=== PATIENT | male | born 1965 | race Caucasian/White ===

== ENCOUNTER 2017-06-30 08:09 | Day surgery (SDC) | payer BC, SELFPAY ==
[2017-06-28 13:32] VITALS: BMI 28.8
[2017-06-30] VITALS (11 sets, daily range): BP systolic 107–129; BP diastolic 59–76; PULSE 50–65; RESP 17–22; TEMP 37; O2SAT 96–99
--- NOTE | 2017-06-30 10:06 | HMH.PROC ---
[facility] Procedure Note Procedure Note:: Colonoscopy Procedure Report: Colonoscopy with cold snare polypectomy Endoscopist: Tad Fatima II, MD Referring physician: Juan Capone MD Date of Procedure: June 30, 2017 Equipment: Olympus 180 variable stiffness pediatric colonoscope Sedation: Fentanyl 100 mg IV/ Versed 5 mg IV Indication: Mr. Coronel is a 52-year-old gentleman who is here for initial screening colonoscopy. He reports no abdominal pain, weight loss, change in his bowel habits or rectal bleeding. He reports no family history of colon cancer. Procedure: Prior to the procedure, a history and physical exam was performed, and patient's medications and allergies were reviewed. The risks, benefits and alternatives of the sedation and procedure were discussed with the patient. All questions were answered and informed consent was obtained. The patient was brought to the procedure room. Patient identification and proposed procedure were verified by the physician and the nurse. The patient was placed in a left lateral decubitus position and the scope was passed under direct vision. Throughout the procedure, the patient's blood pressure, pulse, and oxygen saturations were monitored continuously. The colonoscopy was accomplished without difficulty. The patient tolerated the procedure well. Findings: On digital rectal examination there was normal rectal tone. There were no external hemorrhoids. The colonoscope was introduced through the anal canal to the rectum and advanced to the cecum. The ileocecal valve and appendiceal orifice were identified. The scope was advanced a short distance into the ileum which appeared grossly normal. The scope was then withdrawn into the colon. The cecum, ascending and transverse colon and mucosa were grossly normal. There were scattered diverticuli throughout the descending and sigmoid colon (LEFT colon). There was a 6-7 mm polyp in the descending colon removed via cold snare polypectomy. The rectum itself was normal. Upon retroflexion within the rectum there were grade 1 internal hemorrhoids. Impression: 1. Descending colon polyp 2. Left-sided diverticulosis 3. Grade 1 internal hemorrhoids Plan: I will follow up the polyp pathology and recommend repeat colonoscopy again in 5 years based upon the polyp histology. I would encourage fiber supplementation on a long-term daily maintenance basis.
== END 2017-06-30 11:12 | disposition home or self-care (01) ==
LOC: OUTP 08:09
PROVIDERS: Family Provider Family Medicine; PCP Family Medicine; Visit Provider Internal Medicine Gastroenterology
PROC: 0DJD8ZZ Inspection of Lower Intestinal Tract, Via Natural or Artificial Opening Endoscopic (ICD-10-PCS; CPT 45378; principal; 2017-06-30 09:00)
DX: Z12.11 Encounter for screening for malignant neoplasm of colon (principal); K63.5 Polyp of colon; K57.30 Diverticulosis of large intestine without perforation or abscess without bleeding; K64.0 First degree hemorrhoids
CPT/HCPCS: 45380; 99152; 99153

== ENCOUNTER → 2019-07-11 11:14 | Outpatient (CLI) | payer BC, SELFPAY ==
--- NOTE | 2019-07-11 11:20 | XR_ITS ---
PROCEDURE: XR LUMBAR SPINE MIN 4V CLINICAL INDICATION: RT LBP WITH SCIATICA COMPARISON: No exams were available for comparison FINDINGS: There is degenerative disc disease at L3-L4 L4-5 and L5-S1. There is 4 mm retrolisthesis of L4 and 3 mm anterolisthesis of L5. No fracture or dislocation. No lytic or blastic change. There is mild facet arthritic changes at L5-S1 IMPRESSION: Degenerative changes as described Dictated by: Vaslie Dumont MD 07/11/2019 15:58 Electronically signed by Vasile Dumont MD in [place] 07/11/2019 15:58
== END ==
PROVIDERS: PCP Family Medicine; Visit Provider Family Medicine
DX: M54.41 Lumbago with sciatica, right side (principal)
CPT/HCPCS: 72110

== ENCOUNTER → 2019-09-06 09:45 | Outpatient (CLI) | payer BC, SELFPAY ==
--- NOTE | 2019-09-06 09:52 | US_ITS ---
PROCEDURE: US ABD. AORTA SCREENING CLINICAL INDICATION: AAA W/O RUPTURE COMPARISON: XR LUMBAR SPINE MIN 4V from 07/11/2019 FINDINGS: Indication for the exam is possible aneurysm seen on recent MRI. That study is not available at this institution for comparison. No definite aneurysm is evident. Abdominal aorta measures up to 2.2 cm in the AP dimension at the level of the umbilicus. Proximal common iliacs are unremarkable. IMPRESSION: No ultrasound evidence of abdominal aortic aneurysm. Dictated by: Vasile Dumont MD 09/06/2019 11:49 Electronically signed by Vasile Dumont MD in [place] 09/06/2019 11:49
== END ==
PROVIDERS: PCP Family Medicine; Visit Provider Family Medicine
DX: I71.4 Abdominal aortic aneurysm, without rupture (principal)
CPT/HCPCS: 76705

== ENCOUNTER → 2019-09-24 11:15 | Outpatient (POV) | payer BC, SELFPAY ==
[2019-09-24 11:33] VITALS: BP 198/97; PULSE 64; RESP 18; TEMP 36.6; O2SAT 99; BMI 28.7
--- NOTE | 2019-09-24 12:53 | HMH.PMCON ---
Assessment and Plan (1) Degenerative joint disease (DJD) of lumbar spine Current visit: Yes Status: Chronic Qualifiers: Spinal osteoarthritis complication: with radiculopathy Qualified Code(s): M47.26 - Other spondylosis with radiculopathy, lumbar region Category: Medical Code(s): M47.816 - Spondylosis without myelopathy or radiculopathy, lumbar region (2) Radiculopathy Current visit: Yes Status: Chronic Category: Medical Code(s): M54.10 - Radiculopathy, site unspecified (3) Sacroiliitis Current visit: Yes Status: Chronic Category: Medical Code(s): M46.1 - Sacroiliitis, not elsewhere classified (4) Postlaminectomy syndrome Current visit: Yes Status: Chronic Category: Medical Code(s): M96.1 - Postlaminectomy syndrome, not elsewhere classified - Assessment and plan all Dx Assessment and Plan for all problems:: We will schedule the patient for an L4-L5 lumbar epidural steroid injection. They will then schedule him for right SI joint injection 2 to 3 weeks after that. We will start him on gabapentin 100 mg at nighttime. I will see him back after his injective therapy. Patient's been instructed to call the office if he has any issues prior to his next appointment. He was also given education in regards to the procedure. Dr. Nolen has reviewed this note and agrees with this plan of care. This note was dictated using voice recognition software and may contain errors or omissions HPI - Data of Consult Consult date: 09/24/19 Requesting Physician: Nelda Kaplan APRN Primary Care Provider: Juan Capone MD - Consult Narrative Reason for consult: Back pain, leg pain History of present illness: Mr. Coronel is a 54 year old male who presents today for consultation in regards to his low back and leg pain. Patient was moving his pie safe back in May and began to have back pain quickly after that. He has had low back pain with right leg radiculopathy. Also seems to have quite a bit of tenderness over his right SI joint. Patient has found that he has had more difficulty urinating since his back is been hurting. He rates his pain a 6 out of 10. He has been going to chiropractic therapy and has not gotten any relief from it. He does have an MRI showing disc bulges along with degenerative changes within his lower spine. Patient and I discussed a plan of care. He is not on any anticoagulation therapy. CC: Nelda Kaplan APRN [facility] History I have reviewed the patient's past medical history: Yes Medical History: Reports:: Hyperlipidemia Denies:: Diabetes Mellitus Type 1, Diabetes Mellitus Type 2, Internal Pacemaker, Lung Disease, Seizures *Have you ever received a pneumonia vaccine?: Yes *Have you received a flu vaccine this season?: Yes Other Medical History: Reports: Arthritis Other Surgeries: No: Pacemaker - *Social History Smoking Status: Never smoker Alcohol Intake: never *Occupational Status:: other Housing: house Household Members: other *Travel in the last 8 weeks: None Family Hx:: Unable to obtain Review of Systems - Review of Systems ROS General: no recent weight change, no fever, no sleep disturbances Respiratory: no cough, no shortness of air, no recurring pulmonary infections Cardiovascular/Peripheral Vascular: No chest pain, No palpitations, no edema, no shortness of breath. Gastrointestinal: no new onset incontinence, normal bowel movements reported Genitourinary: no new onset incontinence Musculoskeletal: Back pain, leg pain Psychiatric: normal mood/ affect, [denies depression], [denies anxiety] Neurological: [denies new onset weakness in extremities], [denies new onset balance issues] Meds Home Medications Medication Instructions Recorded Confirmed Type Dutasteride [Avodart] 0.5 mg PO DAILY 06/30/17 06/30/17 History tadalafiL [Cialis] 5 mg PO DAILY 06/30/17 06/30/17 History Allergies Allergy/AdvReac Type Severity Reaction S
== END ==
PROVIDERS: PCP Family Medicine; Visit Provider Clinical Nurse Specialist Family Health
DX: M47.26 Other spondylosis with radiculopathy, lumbar region (principal); M46.1 Sacroiliitis, not elsewhere classified; M96.1 Postlaminectomy syndrome, not elsewhere classified
CPT/HCPCS: 99202

== ENCOUNTER 2019-10-04 11:12 | Day surgery (SDC) | payer BC, SELFPAY ==
[2019-10-04 11:47] VITALS: BP 153/78; PULSE 63; RESP 18; O2SAT 98; BMI 28.7
[2019-10-04 12:33] VITALS: BP 145/78; PULSE 85
[2019-10-04 12:34] VITALS: BP 148/89; PULSE 85; RESP 18; O2SAT 99
[2019-10-04 12:38] VITALS: BP 149/80; PULSE 71; RESP 20; O2SAT 98
--- NOTE | 2019-10-04 12:44 | HMH.PMPROC ---
- Procedure Date: 10/04/19 Time: 12:45 Anesthesiologist:: Carlos Nolen MD Complications:: None Pre-procedure Diagnosis:: Degenerative disc disease of lumbar spine with lumbar radiculopathy symptoms Post-procedure Diagnosis:: Same Indications for Procedure:: This patient is a pleasant 54-year-old white male who we are treating for low back pain with lumbar radiculopathy symptoms. He does have significant pain in his low back radiating down right leg. Will do lumbar epidural steroid injections today. He may need a right SI joint injection in the future. Procedure Details:: Lumbar epidural steroid injection under fluoroscopy Informed consent was obtained and the risk and benefits of the procedure was explained to the patient. The patient was taken to the procedure room. The patient was placed prone on the procedure table. The patient was prepped and draped in sterile fashion. C-arm fluoroscopy was used to view the lumbar spine. Skin and subcutaneous tissues were anesthetized using lidocaine. I placed an 18-gauge epidural needle and advanced into the L4-L5 interspace using fluoroscopic guidance and [id number] to air. After confirmation of needle placement in the epidural space with dye I injected 2 mL of lidocaine 1.5% with Depo-Medrol 80 mg. Patient tolerated the procedure well with no complications. Plan and Disposition:: We will follow-up with him in 2 weeks. Will reevaluate symptoms at that time. We may evaluate him for right SI joint injection if he still has pain on the right side.
== END 2019-10-04 12:39 | disposition home or self-care (01) ==
LOC: SC.PAINP 11:13
PROVIDERS: PCP Family Medicine; Visit Provider Anesthesiology
DX: M51.16 Intervertebral disc disorders with radiculopathy, lumbar region (principal)
CPT/HCPCS: 62323; J1040; Q9966

== ENCOUNTER 2019-10-15 13:18 | Day surgery (SDC) | payer BC, SELFPAY ==
[2019-10-15 13:43] VITALS: BP 166/85; PULSE 82; RESP 18; O2SAT 98; BMI 28.7
[2019-10-15 14:29] VITALS: BP 132/78; PULSE 85; RESP 18; TEMP 36.9; O2SAT 99
[2019-10-15 14:30] VITALS: BP 147/78; PULSE 85; RESP 18; O2SAT 99
--- NOTE | 2019-10-15 14:33 | HMH.PMPROC ---
- Procedure Date: 10/15/19 Time: 14:34 Anesthesiologist:: Nelda Kaplan APRN Complications:: None Pre-procedure Diagnosis:: Sacroiliitis Post-procedure Diagnosis:: Same Indications for Procedure:: Patient is a very pleasant 54-year-old white male who presents today for right SI joint injection. He had a lumbar epidural steroid injection which gave him some relief however he still having SI joint pain. He is got a positive Librado test SI joint compression test and Renita's test on the right side. We will move forward with a right SI joint injection today. He rates his pain a 5 out of 10 today. Physical Exam General: Alert and oriented x3, no acute distress, pleasant and cooperative, [on room air] Lungs: Resps E/U, Symmetrical chest expansion, Eyes: PERRL Musculoskeletal: Flexion and extension of lumbar spine somewhat guarded secondary to pain, deep tendon reflexes normal, strength in upper and lower extremities [5/5], [abnormal gait noted] Neurological: speech clear, endoscopy tech equal, no gross sensory deficits Procedure Details:: Informed consent was obtained and the risks and benefits of the procedure were explained to the patient. Patient was taken to the procedure room. Patient was placed prone on the procedure table. The [right] hip was prepped using ChloraPrep as a cleansing solution. The skin and subcutaneous tissues were anesthetized using lidocaine. Using fluoroscopic guidance I placed a 22-gauge spinal needle into the inferior aspect of the [right] SI joint. After this I injected 5 mL bupivacaine 0.25% and Depo-Medrol 40 mg into the [right] SI joint. The patient tolerated the procedure well with no complication. Plan and Disposition:: We will see the patient back in 3 to 4 weeks reassess his symptoms at that time he has been instructed to call the office if he has any issues prior to his next appointment. Dr. Nolen has reviewed this note and agrees with this plan of care. This note was dictated using voice recognition software and may contain errors or omissions
[2019-10-15 14:35] VITALS: BP 144/94; PULSE 77; RESP 18; O2SAT 98
== END 2019-10-15 14:45 | disposition home or self-care (01) ==
LOC: SC.PAINP 13:19
PROVIDERS: PCP Family Medicine; Visit Provider Clinical Nurse Specialist Family Health
DX: M46.1 Sacroiliitis, not elsewhere classified (principal); Z72.0 Tobacco use; Z79.899 Other long term (current) drug therapy; M47.896 Other spondylosis, lumbar region; M96.1 Postlaminectomy syndrome, not elsewhere classified; E78.5 Hyperlipidemia, unspecified
CPT/HCPCS: 27096; G0260; J1030; Q9966

== ENCOUNTER → 2019-11-07 10:13 | Outpatient (POV) | payer BC, SELFPAY ==
[2019-11-07 10:58] VITALS: BP 151/82; PULSE 70; RESP 18; TEMP 36.8; O2SAT 98; BMI 28.7
--- NOTE | 2019-11-07 13:30 | HMH.PAINSOAP ---
[facility] Pain Management SOAP Note Subjective:: Patient is a pleasant 54-year-old white male who presents today for follow-up. He has been treated for low back pain along with lumbar radiculopathy symptoms. Patient has undergone a lumbar epidural steroid injection in the past for which he got 90% relief for up to 2 weeks. The patient also underwent right SI joint injection. He does admit that he did not get any relief with the right SI joint injection. He does say most of his pain was relieved with the epidural steroid injection. Patient is complaining of pain in his low back area with radiation into his right buttock and right anterior thigh area. He says it does radiate to his right foot. He has tried conservative therapies of physical therapy along with a continued home stretching program. He also uses ice and heat therapies and anti-inflammatories. Review of Systems General: No recent weight changes, no fever, no sleep disturbances Respiratory: No cough, no shortness of air, no recurring pulmonary infections Cardiovascular/peripheral vascular: No chest pain, no palpitations, no edema, no shortness of breath Gastrointestinal: No new onset incontinence, normal bowel movements reported Genitourinary: No new onset incontinence Musculoskeletal: Back pain, right buttock pain, right anterior thigh pain, right leg pain Psychiatric: Normal mood/affect Neurological: [Denies weakness in extremities], [denies balance issues] Objective:: Physical exam General: Alert and oriented x3, no acute distress, pleasant and cooperative, [on room air] Lungs: Respirations even and unlabored, symmetrical chest expansion Eyes: PERRL Musculoskeletal: Flexion and extension of lumbar spine somewhat guarded secondary to pain, deep tendon reflexes normal, strength in upper and lower extremities [5/5], [abnormal gait noted] Neurological: Speech clear, division supervisor equal, no gross sensory deficit Assessment:: Degenerative disc disease lumbar spine with lumbar radiculopathy symptoms Plan:: Patient did get relief in the past from his lumbar epidural steroid injection. We will schedule him for a repeat lumbar epidural steroid injection at L4-L5. He is not on any anticoagulation therapy. We will see him back after his injection to reassess his symptoms. He will continue with a home stretching program and anti-inflammatories as well as ice and heat therapies. Has been instructed to contact clinic if he has any concerns before his next appointment. The patient and I specifically discussed risk factors for COVID19. These risks include, but are not limited to age greater than 60, heart or lung disease, diabetes, immunosuppression, and travel. We also discussed NSAIDs may worsen COVID19 infection or symptoms. Patient should not use NSAIDs to treat COVID19 signs or symptoms. Patient was also informed that any type of corticosteroid of any form (oral or injection) will decrease the patient's immune system response and may increase the likelihood of COVID19 infection [address] symptoms[address] Nolen has reviewed this note and agrees with this plan of care. This note was dictated using voice recognition software and make contain errors or omissions. [facility] History I have reviewed the patient's past medical history: Yes Medical History: Reports:: Hyperlipidemia Denies:: Cancer, Diabetes Mellitus Type 1, Diabetes Mellitus Type 2, Internal Pacemaker, Lung Disease, MRSA, Seizures *Have you ever received a pneumonia vaccine?: Yes *Have you received a flu vaccine this season?: Yes Other Medical History: Reports: Arthritis Other Surgeries: No: Pacemaker Amputation: No Fractures: No - *Social History Smoking Status: Current every day smoker Tobacco Type: cigarettes # Packs/Day (cigarettes): 1 Alcohol Intake: never *Occupational Status:: other Housing: house Household Members: other *Travel in the last 8 weeks: None Family Hx:: Unable to obtain
== END ==
PROVIDERS: PCP Family Medicine; Visit Provider Clinical Nurse Specialist Family Health
DX: M51.16 Intervertebral disc disorders with radiculopathy, lumbar region (principal)
CPT/HCPCS: 99212

== ENCOUNTER → 2019-11-21 10:57 | Outpatient (CLI) | payer BC, SELFPAY ==
[2019-11-22 14:14] LABS: Covid-19 Nasal PCR Sendout Lex NOT DETECTED
== END ==
PROVIDERS: PCP Family Medicine; Visit Provider Family Medicine
DX: Z03.818 Encounter for observation for suspected exposure to other biological agents ruled out (principal); Z11.59 Encounter for screening for other viral diseases
CPT/HCPCS: U0004

== ENCOUNTER 2019-12-06 09:32 | Day surgery (SDC) | payer BC, SELFPAY ==
[2019-12-06 09:47] VITALS: BP 151/76; PULSE 61; RESP 18; TEMP 36.4; O2SAT 99; BMI 30.1
[2019-12-06 10:20] VITALS: BP 132/88; PULSE 85; RESP 18
[2019-12-06 10:21] VITALS: BP 140/78; PULSE 85; RESP 18; O2SAT 98
--- NOTE | 2019-12-06 10:25 | HMH.PMPROC ---
- Procedure Date: 12/06/19 Time: 10:25 Anesthesiologist:: Carlos Nolen MD Complications:: None Pre-procedure Diagnosis:: Degenerative disc disease of lumbar spine with lumbar radiculopathy symptoms Post-procedure Diagnosis:: Same Indications for Procedure:: This patient is a pleasant 54-year-old white male who we are treating for low back pain with lumbar radiculopathy symptoms. He has increasing pain in the low back rating down the right leg. Will do lumbar epidural steroid injection under fluoroscopy today. Procedure Details:: Lumbar epidural steroid injection under fluoroscopy Informed consent was obtained and the risk and benefits of the procedure was explained to the patient. The patient was taken to the procedure room. The patient was placed prone on the procedure table. The patient was prepped and draped in sterile fashion. C-arm fluoroscopy was used to view the lumbar spine. Skin and subcutaneous tissues were anesthetized using lidocaine. I placed an 18-gauge epidural needle and advanced into the L4-L5 interspace using fluoroscopic guidance and [id number] to air. After confirmation of needle placement in the epidural space with dye I injected 2 mL of lidocaine 1.5% with Depo-Medrol 80 mg. Patient tolerated the procedure well with no complications. Plan and Disposition:: We will follow-up with him in 2 weeks. Will reevaluate symptoms at that time.
[2019-12-06 10:38] VITALS: BP 143/78; PULSE 78; RESP 18; O2SAT 99
== END 2019-12-06 10:39 | disposition home or self-care (01) ==
LOC: SC.PAINP 09:34
PROVIDERS: PCP Family Medicine; Visit Provider Anesthesiology
DX: M51.16 Intervertebral disc disorders with radiculopathy, lumbar region (principal); I10 Essential (primary) hypertension; Z72.0 Tobacco use; M46.1 Sacroiliitis, not elsewhere classified; M47.896 Other spondylosis, lumbar region
CPT/HCPCS: 62323; J1040; Q9966

== ENCOUNTER → 2019-12-26 09:44 | Outpatient (POV) | payer BC, SELFPAY ==
[2019-12-26 10:15] VITALS: BP 144/80; PULSE 58; RESP 18; TEMP 36.8; O2SAT 99; BMI 28.7
--- NOTE | 2019-12-26 11:43 | HMH.PAINSOAP ---
[facility] Pain Management SOAP Note Subjective:: Patient is a pleasant 54-year-old white male who presents today follow-up after his third lumbar epidural steroid injection. He has been treated for low back pain with lumbar radiculopathy symptoms. He has increasing pain in his low back radiating into his right leg. Patient says he did not get any relief after this injection. He says his pain was actually worse following the injection. He rates his pain a 5 or 6 out of 10 today. He is planning to go to new job within the next week and does not want to resume any injective therapy at this time. Patient would like to try oral medications. He does not want an opiate at this time. He says he is taking Tylenol and ibuprofen [id number]. Review of Systems General: No recent weight changes, no fever, no sleep disturbances Respiratory: No cough, no shortness of air, no recurring pulmonary infections Cardiovascular/peripheral vascular: No chest pain, no palpitations, no edema, no shortness of breath Gastrointestinal: No new onset incontinence, normal bowel movements reported Genitourinary: No new onset incontinence Musculoskeletal: Back pain, right leg pain Psychiatric: Normal mood/affect Neurological: [Denies weakness in extremities], [denies balance issues] Objective:: Physical exam General: Alert and oriented x3, no acute distress, pleasant and cooperative, [on room air] Lungs: Respirations even and unlabored, symmetrical chest expansion Eyes: PERRL Musculoskeletal: Flexion and extension of lumbar spine somewhat guarded secondary to pain, deep tendon reflexes normal, strength in upper and lower extremities [5/5], [abnormal gait noted] Neurological: Speech clear, criminal justice instructor equal, no gross sensory deficit Assessment:: Degenerative disc disease lumbar spine with lumbar radiculopathy symptoms Plan:: We will give the patient's Duexis samples today to see if this gives him relief. If he has been encouraged to stop taking any [id number] anti-inflammatories. If the patient does get relief we will order hand the medication. We will follow-up with him in 2 weeks to reassess his symptoms. He has been instructed to contact clinic if he has any concerns before his next appointment. The patient and I specifically discussed risk factors for COVID19. These risks include, but are not limited to age greater than 60, heart or lung disease, diabetes, immunosuppression, and travel. We also discussed NSAIDs may worsen COVID19 infection or symptoms. Patient should not use NSAIDs to treat COVID19 signs or symptoms. Patient was also informed that any type of corticosteroid of any form (oral or injection) will decrease the patient's immune system response and may increase the likelihood of COVID19 infection [address] symptoms[address] Nolen has reviewed this note and agrees with this plan of care. This note was dictated using voice recognition software and make contain errors or omissions. [facility] History I have reviewed the patient's past medical history: Yes Medical History: Reports:: Hyperlipidemia Denies:: Cancer, Diabetes Mellitus Type 1, Diabetes Mellitus Type 2, Internal Pacemaker, Lung Disease, MRSA, Seizures *Have you ever received a pneumonia vaccine?: Yes *Have you received a flu vaccine this season?: Yes Other Medical History: Reports: Arthritis Other Surgeries: No: Pacemaker Amputation: No Fractures: No - *Social History Smoking Status: Current every day smoker Tobacco Type: cigarettes # Packs/Day (cigarettes): 1 Alcohol Intake: never *Occupational Status:: other Housing: house Household Members: other *Travel in the last 8 weeks: None Family Hx:: Unable to obtain
== END ==
PROVIDERS: PCP Family Medicine; Visit Provider Clinical Nurse Specialist Family Health
DX: M51.16 Intervertebral disc disorders with radiculopathy, lumbar region (principal)
CPT/HCPCS: 99212

== ENCOUNTER → 2021-10-11 15:13 | Outpatient (CLI) | payer OTHER, SELFPAY ==
--- NOTE | 2021-10-11 15:20 | CT_ITS ---
FINAL REPORT CLINICAL HISTORY: SCREENING FOR CANCER; DEPENDANCE OF NICOTINE smoker 1ppd x 30 years no family hx FINDINGS: CT CHEST SCREENING CTDI vol (mGy): 2.90 DLP (mGy-cm): 100.29 Axial images were obtained from the lung apex to the mid abdomen by computed tomography. Low-dose protocol was utilized. FINDINGS: CHEST: There is no axillary adenopathy. There are several borderline mediastinal nodes. The heart is proper size. There is no pericardial or pleural effusion. Limited images of the upper abdomen are unremarkable. Lung window images demonstrate mild emphysema and mild scarring. There are several calcified granulomas in the right lung. IMPRESSION: Lung RADS category 1. Recommend 12 month follow-up low-dose chest CT. Reviewed, Interpreted and Dictated by Nigel Osei III, MD Transcribed by Adrienne Pablo Authenticated and [facility]
== END ==
PROVIDERS: PCP Family Medicine; Visit Provider Family Medicine
DX: Z87.891 Personal history of nicotine dependence (principal); Z12.2 Encounter for screening for malignant neoplasm of respiratory organs
CPT/HCPCS: 71271

== ENCOUNTER 2022-02-07 11:28 | Emergency (ER) | payer OTHER, SELFPAY ==
[2022-02-07 12:35] VITALS: BP 155/98; PULSE 65; RESP 18; TEMP 36.9; O2SAT 99; BMI 27.2
--- NOTE | 2022-02-07 12:41 | EXP.UTC ---
Discharge Plan Disposition Patient Disposition: Home, Self-Care Condition: Good Prescriptions Prescriptions: New benzonatate [benzonatate] 100 mg capsule 100 mg PO TIDP PRN (Reason: Cough) Qty: 30 0RF ondansetron 4 mg Tablet,Disintegrating 4 mg PO Q8H PRN (Reason: Nausea) Qty: 20 0RF No Action gabapentin 100 MG capsule 100 mg PO HS cyclobenzaprine 10 MG tablet 10 mg PO TID 30 Days Qty: 90 0RF dutasteride [Avodart] 0.5 MG capsule 0.5 mg PO DAILY tadalafil [Cialis] 5 MG tablet 5 mg PO DAILY Referrals Follow up/Referrals: Juan Capone MD [Primary Care Provider] - See instructions Activity Restrictions/Add. Instructions Additional Instructions/Restrictions: Drink plenty of fluids. Take tylenol or ibuprofen for pain or fever. Take the medications as directed. Follow up with your regular doctor. GO TO THE ER FOR ANY WORSENING SYMPTOMS Quarantine until you know the results of your covid-19 test. Notify your school or workplace of your results and follow their instructions regarding return to work/school. Clinical Impressions Clinical Impression: COVID-19 Instructions Patient Instructions: Coronavirus Disease 2019, Preventing the Spread of Coronavirus Discharge Instructions Discharge ED Provider: Otoniel Barone [facility] General Stated complaint: fever,aches,cough,sore throat,covid test Time Seen by Provider: 02/07/22 12:40 History of Present Illness Provider Complaint: He is here to have a pcr covid-19 test done. He has felt bad for the past 2 days. He took a home covid test yesterday and the results were positive. He denies any shortness of breath or chest congestion. Related Data Home Medications Medication Instructions Recorded Confirmed dutasteride 0.5 mg capsule 0.5 mg PO DAILY blood pressure 06/30/17 10/15/19 (Avodart) tadalafil 5 mg tablet (Cialis) 5 mg PO DAILY . 06/30/17 10/15/19 gabapentin 100 mg capsule 100 mg PO HS Pain 10/04/19 10/15/19 Previous Rx's Medication Instructions Recorded cyclobenzaprine 10 mg tablet 10 mg PO TID 30 days #90 tabs 12/26/19 benzonatate 100 mg capsule 100 mg PO TIDP PRN Cough #30 caps 02/07/22 ondansetron 4 mg disintegrating 4 mg PO Q8H PRN Nausea #20 tabs 02/07/22 tablet Allergies Allergy/AdvReac Type Severity Reaction Status Date / Time No Known Allergies Allergy Verified 10/15/19 13:49 PFSH PFSH Medical History BPH (benign prostatic hyperplasia) Social History Smoking Status: Current every day smoker tobacco type: cigarettes packs per day: 1 alcohol intake: never current occupational status: other Travel in the last 8 weeks: None household members: other housing: house caffeine: Yes ROS Obtained: Yes All systems reviewed & no additional complaints except as documented Constitutional Constitutional: Denies chills and Denies fever(s) Eyes Eyes: Denies eye discharge ENT Ears, Nose, Mouth, and Throat: Denies dizziness, Denies otalgia and Denies sore throat Cardiovascular Cardiovascular: Denies chest pain Respiratory Respiratory: Denies shortness of breath, Denies chest congestion, Denies cough, Denies stridor and Denies wheezing Gastrointestinal Gastrointestingal: Denies nausea or vomiting Musculoskeletal Musculoskeletal: Reports system reviewed and no additional complaints, except as documented and Denies arthralgias Integumentary/Breasts Skin/Breast: Denies rash Neurologic Neurologic: Denies dizziness and Denies paresthesias Allergic/Immunologic Allergic/Immunologic: Denies wheezing Physical Exam General General appearance: alert and in no apparent distress Head Head exam: atraumatic, normocephalic and normal inspection Eye Eye exam: Present normal appearance, PERRL and EOMI ENT ENT exam: Present normal exam, normal oropharynx, mucous membranes moist, TM's no
[2022-02-07 13:01] VITALS: BP 155/98; PULSE 65; RESP 18; TEMP 36.9; O2SAT 99
== END 2022-02-07 13:03 | disposition home or self-care (01) ==
PROVIDERS: Emergency Provider Nurse Practitioner Family; PCP Family Medicine
DX: U07.1 COVID-19 (principal); J02.9 Acute pharyngitis, unspecified; R50.9 Fever, unspecified; R05.9 Cough, unspecified; M79.10 Myalgia, unspecified site; R11.0 Nausea; N40.0 Benign prostatic hyperplasia without lower urinary tract symptoms; F17.210 Nicotine dependence, cigarettes, uncomplicated; Z79.899 Other long term (current) drug therapy
CPT/HCPCS: 99213; C9803; G0463; U0003; U0005

== ENCOUNTER → 2023-02-13 06:51 | Outpatient (CLI) | payer OTHER, SELFPAY ==
--- NOTE | 2023-02-13 07:05 | CT_ITS ---
FINAL REPORT CLINICAL HISTORY: HX NICOTINE DEPENDENCE 1 ppd x 35 years family hx of lung cancer COMPARISON: 10/11/2021 FINDINGS: CTDI vol (mGy): 2.90 DLP: 101.[address] images of the chest were obtained using the low-dose protocol for screening. Several borderline mediastinal lymph nodes are seen. There is no evidence of mediastinal or hilar mass or adenopathy. No axillary mass or adenopathy is identified. On the lung window images, no pulmonary mass or suspicious nodule is identified. There is mild emphysema and mild scarring. Several calcified granulomas are noted. IMPRESSION: Lung RADS category 1 . Recommend 12 month followup low-dose CT for further evaluation. Reviewed, Interpreted and Dictated by Nigel Osei III, MD Transcribed by Mary Adhikari Authenticated and [facility]
== END ==
PROVIDERS: PCP Family Medicine; Visit Provider Family Medicine
DX: Z12.2 Encounter for screening for malignant neoplasm of respiratory organs (principal); Z87.891 Personal history of nicotine dependence
CPT/HCPCS: 71271

== ENCOUNTER 2023-10-30 09:36 | Outpatient (CLI) | payer OTHER, SELFPAY ==
--- NOTE | 2023-10-30 09:49 | ECG_ITS ---
APPROVED REPORT Exam: Resting ECG HR:45 bpm ECG Measurements Heart Rate 45 AXES ME 142 P -1 QRSd 106 QRS 28 QT 434 T 32 QTc 391 Conclusion SINUS BRADYCARDIA BORDERLINE ECG UNCONFIRMED REPORT Electronically signed by : Ventura Santacruz MD 10/30/2023 17:19:04
== END 2023-10-30 23:59 | disposition home or self-care (01) ==
LOC: RT 09:38
PROVIDERS: PCP Family Medicine; Visit Provider Family Medicine
DX: R07.89 Other chest pain (principal)
CPT/HCPCS: 93005

== ENCOUNTER 2023-11-13 11:12 | Outpatient (CLI) | payer OTHER, SELFPAY ==
--- NOTE | 2023-11-13 | CA_ITS ---
APPROVED REPORT Exam: Pharmacologic Technologist: Latanya Quiros Ht: 5 ft 10 in Wt: 188 lbs BSA: 2.03 m2 HR: 67 bpm BP: 166/76 mmHg Indications: Atypical Chest Pain Medical History Medications: Aspirin,,,,, Allergy medication,,,,, Finasteride,,,,, Multivitamin,,,,, Stress Test Details Test: LEXISCAN HR Resting HR: 64 bpm Max Heart Rate (APMHR): 163 bpm Max HR Achieved: 95 bpm Target HR (85% APMHR): 139 bpm % of APMHR: 58 BP Resting BP: 166/76 mmHg Max BP: 166/76 mmHg Recovery BP: 130.0/75.0 mmHg ECG Resting ECG: Sinus rhythm Stress ECG: No significant ST changes Arrhythmia: None Clinical Exercise duration: 04:04 min Highest Stage Achieved: Exercise capacity: 1.0 METs Stress ECG Conclusion Mild chest pressure. Worsening chest pressure(4/10, 6/10) radiating to left arm. Initially scheduled for Perez protocol, but stopped test. Changed to Lexiscan. ST depression and T-wave inversion in inferolateral leads associated with 6/10 chest pressure with shortness of air and radiation to left arm, resolved very quickly at rest. Symptoms: Chest tightness. Left arm pain. Arrhythmias/Ectopy: None ST-T Changes: Lexiscan. Conclusion: Chest tightness radiating to left arm with Lexiscan. Myoview images reported separately. Test Summary REST . . . . . . . Resting REST 02:12 . . 64 . 166/ 76 . . Stage 1 . . . . . . . Myoview Injected Stage 1 01:00 . . 91 . . . . Stage 2 . . . . . . . shoulder and arm pain (left) Stage 2 01:00 . . 85 . 163/ 73 . . Stage 3 . . . . . . . chest pressure Stage 3 01:00 . . 77 . 153/ 80 . . Stage 4 01:00 . . 73 . 153/ 76 . . Stage 4 01:04 . . 72 . 153/ 76 . Stop exercise at 04:04 RECOVERY 01:00 . . 67 . 145/ 80 . . RECOVERY 02:00 . . 69 . 132/ 80 . . RECOVERY 03:00 . . 63 . 132/ 80 . . RECOVERY 04:00 . . 65 . 130/ 75 . . RECOVERY 04:36 . . 64 . 130/ 75 . . Electronically signed by : Amber Bae MD 11/14/2023 11:25:25
--- NOTE | 2023-11-13 11:16 | NM_ITS ---
APPROVED REPORT Exam: Nuclear Stress Test Indication: TOB USE, C.P. Patient Location: Outpatient Stress Tech: Latanya Quiros NM Tech:Paula Steen ARRT, RT (R)(N) Ht: 5 ft 10 in Wt: 188 lbs HR: 64 bpm BP: 166/76 mmHg BSA: 2.03 m2 TID: 1.01 BMI: 26.9 History: TOB USE, C.P. Procedure: Patient received 0.4 mg of intravenous Lexiscan, resting heart rate 64 bpm, resting blood pressure 166/76 mmHg, with Lexiscan maximum heart rate achieved was 95 bpm which is % of the maximum predicted heart rate and blood pressure was 166/76 mmHg. With Lexiscan, patient denied any complaint of chest pain. Electrocardiogram None Cardiac Stress and Resting SPECT Images: Cardiac Stress and Resting SPECT images were obtained using technetium 99m Myoview 30.3 mCi stress and 10.17 mCi at rest. Resting and stress imaging in supine position demonstrate a large sized, moderate, predominantly fixed perfusion defect in the inferior LV wall. There is small ischemic region with surrounding reversibility. There is also medium sized, moderate, predominantly fixed perfusion defect in the mid to distal anterior LV wall towards the anterior apical region. There is also a small ischemic region with surrounding reversibility. Gated imaging demonstrates mild reduction in global and regional LV systolic function. LVEF is calculated at 42% Conclusion: Large sized, moderate, predominantly fixed perfusion defect in the inferior LV wall. There is small ischemic region with surrounding reversibility. There is also medium sized, moderate, predominantly fixed perfusion defect in the mid to distal anterior LV wall towards the anterior apical region. There is also a small ischemic region with surrounding reversibility. Gated imaging demonstrates mild reduction in global and regional LV systolic function. LVEF is calculated at 42% Electronically signed by : Amber Bae MD 11/14/2023 11:33:51
[2023-11-13] MEDS: REGADENOSON 0.4MG/5ML SYRINGE 0.4 MG IV (13:23)
[2023-11-13] MEDS: SODIUM CHLORIDE 0.9% 10ML SYR (RAD ONLY) 10 ML IV ×2 (13:23)
[2023-11-13] MEDS: ISOTOPE MYOVIEW (PER STUDY) 1 DOSE IV (13:23)
== END 2023-11-13 23:59 | disposition home or self-care (01) ==
LOC: RAD 11:12
PROVIDERS: PCP Family Medicine; Visit Provider Family Medicine
DX: R07.89 Other chest pain (principal)
CPT/HCPCS: 78452; 93017; 93018; A9502; J2785

== ENCOUNTER 2023-12-11 10:46 | Outpatient (CLI) | payer OTHER, SELFPAY ==
--- NOTE | 2023-12-11 10:46 | CA_ITS ---
APPROVED REPORT EXAM: Comprehensive 2D, Doppler, and color-flow Echocardiogram [employer] Boards Stripper Etcher: Nidhi Cardona RDCS Ht: 5 ft 10 in Wt: 182lbs BSA: 2.01 BP: 138/66 mmHg Indications: CP,ABN GXT,SOA,HTN,HLP M-Mode Dimensions RVDd 2.14 cm (0.9-2.6) LA Diam 3.09 cm (1.9-4.0) LVDd 5.59 cm (3.5-5.7) LVDs 4.09 cm (3.5-5.7) IVSd 0.97 cm (0.6-1.1) PWd 0.84 cm (0.6-1.1) EF (Teich) 51.80% FS 26.80% EDV (Teich) 153.00 mL TAPSE 2.29 (<1.7) ESV (Teich) 73.80 mL LV Diastology E Decel Time 223 (160-240 msec) E/A Ratio 1.0 Mitral Valve MV E Max Ezio. 69.0 (40-130 cm/s) MV A Velocity 66.0 (40-130 cm/s) E/A Ratio 1.06 MV PHT 65.0 ms Tricuspid Valve TR P. Velocity 218.00 cm/s RAP Estimate 10.00 mmHg RVSP 28.90 mmHg Left Ventricle The left ventricle is normal size. The left ventricular systolic function is normal. The left ventricular ejection fraction is within the normal range. There is normal left ventricular wall thickness. There is normal LV segmental wall motion. The left ventricular diastolic function is normal. LVEF is 55%. Right Ventricle Right ventricle is moderately dilated. The right ventricular systolic function is normal. Atria The left atrium size is normal. The right atrium size is normal. There is no Doppler evidence of interatrial shunt. Aortic Valve The aortic valve opens well. There is no aortic valvular stenosis. No aortic regurgitation is present. Mitral Valve The mitral valve is normal in structure. No evidence of mitral valve stenosis. Trace mitral valve regurgitation noted. Tricuspid Valve Tricuspid valve leaflets are thin and pliable. Mild tricuspid regurgitation. RVSP is 20-25 mmHg. Pulmonic Valve The pulmonary valve is normal in structure. Trace pulmonic regurgitation. The ascending aorta is not well-visualized. Great Vessels The aortic root is normal in size. IVC is normal in size and collapses >50% with inspiration. Pericardium There is no pericardial effusion. Other Information Study Quality: Fair Conclusion Normal LV systolic function. Moderate RV dilation with normal RV function. Mild TR. Electronically signed by : Amber Bae MD 12/12/2023 11:56:10
== END 2023-12-11 23:59 | disposition home or self-care (01) ==
LOC: RT 10:46
PROVIDERS: PCP Family Medicine; Visit Provider Nurse Practitioner Family
DX: I20.89 Other forms of angina pectoris (principal); R06.00 Dyspnea, unspecified; I10 Essential (primary) hypertension; I45.10 Unspecified right bundle-branch block; R94.31 Abnormal electrocardiogram [ECG] [EKG]; R94.39 Abnormal result of other cardiovascular function study; F17.210 Nicotine dependence, cigarettes, uncomplicated
CPT/HCPCS: 93306

== ENCOUNTER 2023-12-14 08:25 | Day surgery (SDC) | payer OTHER, SELFPAY ==
[2023-12-14] VITALS (13 sets, daily range): BP systolic 114–167; BP diastolic 58–86; PULSE 41–54; RESP 16–19; TEMP 36.9; O2SAT 93–98; BMI 26.1
--- NOTE | 2023-12-14 07:08 | IR_ITS ---
APPROVED REPORT Patient Location: Outpatient Supervisor [employer]: JESUS Triplett RT (R) PROCEDURES Left heart catheterization Left ventriculogram Selective coronary angiogram Drug-eluting stent deployment to the ostial proximal right coronary artery Drug-eluting stent deployment to a chronically occluded left anterior descending artery INDICATION Abnormal Myoview, Angina pectoris, Chronically occluded LAD, Atherosclerosis and coronary artery disease with dissection of the right coronary artery Informed consent was obtained prior to the procedure. COMPLICATIONS NONE Estimated Blood Loss: LESS THAN 10 ML TECHNIQUE One percent lidocaine used to anesthetize the right anterior aspect of the wrist. The right radial artery was accessed via the Seldinger technique. A 6 Lao sheath was placed in the right radial artery. 2.5 mg of Verapamil, 800 mcg of nitroglycerin, 1mg Lidocaine and 5000 U Heparin were given through the arterial sheath. The papa catheter was also used to perform left heart catheterization, left ventriculogram and selective coronary angiogram. At the end of the diagnostic angiogram the right coronary artery had significant atheromatous debris as well as a dissection. Therapeutic heparin was administered and the guide catheter was placed back into the right coronary followed by a Choice PT extra-support wire. A 3 mm x 30 mm [place] frontier stent was deployed initially at 14 shirley reducing the stenosis. The balloon was brought back and deployed at 20 shirley outside of the right coronary cusp to further post dilate the ostium and proximal segment. GUERA-3 flow was present before and after the procedure. The dissection was completely resolved following stenting of the right coronary artery. Following this the catheter was placed in the right coronary artery and a Choice PT extra-support wire was used to push through the chronic occlusion of the mid LAD. A 2.5 x 15 mm noncompliant balloon was deployed reducing the stenosis and opening the chronic occlusion. A 3.5 x 22 mm [place] frontier stent was deployed at 18 shirley reducing the stenosis. There was a residual stepdown therefore a 3 mm x 8 mm [place] frontier stent was placed distal to the for stent yet still overlapping and deployed at 18 shirley. The balloon was brought back and reported 24 shirley to mesh the 2 stents. GUERA 0 flow was present at the beginning of the procedure with GUERA-3 flow at the end of the procedure. Then the procedure the apparatus was removed the sheath was removed and hemostasis was achieved using TR banding patient was transferred to the postop putting in stable condition ANGIOGRAPHIC RESULTS The left main artery Normal The left anterior descending artery Proximally normal and then occluded at mid vessel. Following revascularization the LAD was large and wraps the apex The circumflex artery Massively large dominant vessel with mild 10% luminal regularities in the proximal segment with a concentric 30 to 40% stenosis in the mid to distal segment The right coronary artery Nondominant large with heavy atheromatous debris in the proximal segment with the initial shot demonstrating an iatrogenic catheter induced dissection The ROBERTS ventriculogram reveals Preserved at 55% The left ventricular end-diastolic pressure 15 to 20 mmHg IMPRESSION Successful stenting of the ostial proximal right coronary artery heavily atheromatous plaque accompanied by catheter induced dissection reduced to 0% with 1 drug-eluting stent Successful stenting of a chronically occluded mid LAD 100% occlusion reduced to 0% with 2 contiguous drug-eluting stents as described above Preserved ejection fraction Borderline elevated LVEDP PLAN 1. Effient 10 mg daily plus aspirin 81 mg daily 2. LDL less than 55 to be achieved with high intensity statin 3. Avoidance of tobacco products 4. Risk factor modification 5. Cardiac rehabilitation Electronically signed by : Doroteo Mayorga MD 12/14/2023 10:14:49
[2023-12-14 08:54] LABS: Chloride 109 mmol/L (98-107); Potassium 4.6 mmoL/L (3.5-5.1); Sodium 143 mmol/L (136-145)
[2023-12-14 08:57] LABS: Anion Gap 12.6 mEq/L (5-15); Blood Urea Nitrogen 18 mg/dl (9-20); Calcium 9.5 mg/dl (8.4-10.2); Carbon Dioxide 26 mmol/L (22.0-30.0); Creatinine Clearance Estimated 106 mL/min (50-200); Estimated Glomerular Filt Rate 87 ml/min (>60); GFR (African American) 105 ML/MIN (>60); Glucose 97 mg/dl (74-100)
[2023-12-14] MEDS: 0.9 % SODIUM CHLORIDE 500 ML 25 ML IV (09:03)
[2023-12-14] MEDS: HEPARIN 1,000 UNITS/500ML NS (CATH LAB) 3000 UNIT IV (09:03)
[2023-12-14] MEDS: diphenhydrAMINE 50MG/ML VIAL 50 MG IV (09:03)
[2023-12-14] MEDS: NITROGLYCERIN 800MCG/8ML SYR (CATH LAB) 800 MCG IA (09:03)
[2023-12-14] MEDS: HEPARIN 1,000 UNITS/ML 10ML VIAL (CATH LAB) 10000 UNIT IV (09:03)
[2023-12-14] MEDS: LIDOCAINE 1% 10ML MDV 20 ML IJ (09:04)
[2023-12-14] MEDS: VERAPAMIL 2.5MG/ML 2ML VIAL 2.5 MG IV (09:04)
[2023-12-14 09:13] LABS: Basophils # 0.1 K/mm3 (0-0.2); Basophils % 0.9 % (0.1-2.0); Eosinophils # 0.2 K/mm3 (0.0-0.4); Eosinophils % 1.3 % (0.1-12.0); Hematocrit 51.6 % (42.0-52.0); Hemoglobin 16.7 g/dL (14.1-18.0); Lymphocytes # 3.3 K/mm3 (0.7-4.5); Lymphocytes % 26.2 % (10-50); Mean Corpuscular HGB Conc 32.4 g/dL (31.8-35.4); Mean Corpuscular Hemoglobin 29.2 pg (27.0-31.2); Mean Corpuscular Volume 90.2 fl (80-94); Mean Platelet Volume 9.2 fl (7.4-10.4); Monocytes # 0.7 K/mm3 (0.1-1.0); Monocytes % 5.7 % (1.7-9.3); Neutrophils # 8.3 K/mm3 (1.8-7.8); Neutrophils % 65.9 % (37.0-80.0); Platelet Count 253 K/mm3 (142-424); Red Blood Count 5.72 M/mm3 (4.60-6.20); Red Cell Distribution Width 14.2 % (11.5-17.5); White Blood Count 12.5 K/mm3 (4.8-10.8)
[2023-12-14] MEDS: MIDAZOLAM HCL 1MG/1ML 5ML VIAL 1 MG IV (09:41)
[2023-12-14] MEDS: FENTANYL 100MCG/2ML VIAL 50 MCG IV (09:43)
[2023-12-14] MEDS: PRASUGREL 10MG TAB 60 MG PO (10:28)
--- NOTE | 2023-12-14 13:39 | SUR.PHASEII ---
Pt requested refills on metoprolol and lipitor, with concerns of HR being in the low 40s and high 30s, verified with Dr Mayorga to refill these medications. Medications refilled, scripts for new medication (effient) sent to [facility] per pt request.
[2023-12-14] MEDS: IOPAMIDOL-370 (76%);100ML BOTTLE 120 ML IV (14:19)
[2023-12-14 14:29] LABS: CATHL Activated Clotting Time > 400 SEC (74-125)
== END 2023-12-14 13:30 | disposition home or self-care (01) ==
PROVIDERS: PCP Family Medicine; Visit Provider Internal Medicine
DX: I25.118 Atherosclerotic heart disease of native coronary artery with other forms of angina pectoris (principal); F17.210 Nicotine dependence, cigarettes, uncomplicated; I10 Essential (primary) hypertension; E78.5 Hyperlipidemia, unspecified; I45.10 Unspecified right bundle-branch block; R94.31 Abnormal electrocardiogram [ECG] [EKG]; R94.39 Abnormal result of other cardiovascular function study; Z79.899 Other long term (current) drug therapy; Z82.49 Family history of ischemic heart disease and other diseases of the circulatory system; I77.1 Stricture of artery
CPT/HCPCS: 80048; 85025; 85347; 92928; 93458; 99152; 99153; C1725; C1769; C1874; C9600; J1200; J1644; J2250; J3010; Q9967

== ENCOUNTER 2023-12-18 09:37 | Outpatient (CLI) | payer OTHER, SELFPAY ==
[2023-12-18 10:02] LABS: Basophils # 0.1 K/mm3 (0-0.2); Basophils % 0.8 % (0.1-2.0); Eosinophils # 0.1 K/mm3 (0.0-0.4); Eosinophils % 0.9 % (0.1-12.0); Hematocrit 49.8 % (42.0-52.0); Hemoglobin 15.9 g/dL (14.1-18.0); Lymphocytes # 3.6 K/mm3 (0.7-4.5); Lymphocytes % 27.6 % (10-50); Mean Corpuscular HGB Conc 31.9 g/dL (31.8-35.4); Mean Corpuscular Hemoglobin 29.2 pg (27.0-31.2); Mean Corpuscular Volume 91.6 fl (80-94); Mean Platelet Volume 9.7 fl (7.4-10.4); Monocytes # 0.8 K/mm3 (0.1-1.0); Monocytes % 5.7 % (1.7-9.3); Neutrophils # 8.6 K/mm3 (1.8-7.8); Platelet Count 260 K/mm3 (142-424); Red Blood Count 5.44 M/mm3 (4.60-6.20); White Blood Count 13.2 K/mm3 (4.8-10.8)
[2023-12-18 10:34] LABS: Albumin Level 4.4 g/dl (3.5-5.0); Chloride 108 mmol/L (98-107); Potassium 4.3 mmoL/L (3.5-5.1); Sodium 139 mmol/L (136-145)
[2023-12-18 10:37] LABS: Alanine Aminotransferase 34 U/L (12-78); Albumin/Globulin Ratio 1.7 (1.1-1.8); Alkaline Phosphatase 87 U/L (38-126); Anion Gap 6.3 mEq/L (5-15); Aspartate Amino Transferase 35 U/L (17-59); Blood Urea Nitrogen 17 mg/dl (9-20); Calcium 9.3 mg/dl (8.4-10.2); Carbon Dioxide 29 mmol/L (22.0-30.0); Estimated Glomerular Filt Rate 100 ml/min (>60); GFR (African American) 121 ML/MIN (>60); Globulin 2.6 g/dL (1.3-3.2); Glucose 92 mg/dl (74-100)
== END 2023-12-18 23:59 | disposition home or self-care (01) ==
LOC: LAB 09:37
PROVIDERS: PCP Family Medicine; Visit Provider Internal Medicine
DX: I25.10 Atherosclerotic heart disease of native coronary artery without angina pectoris (principal); Z98.61 Coronary angioplasty status; F17.210 Nicotine dependence, cigarettes, uncomplicated
CPT/HCPCS: 36415; 80053; 85025

== ENCOUNTER 2023-12-25 09:47 | Outpatient (RCR) | payer OTHER, SELFPAY | END 2024-02-29 11:00 | disposition home or self-care (01) | LOC: PT 09:47 | PROVIDERS: Visit Provider Internal Medicine | DX: Z95.5 Presence of coronary angioplasty implant and graft (principal) | CPT/HCPCS: 93798 ==

== ENCOUNTER 2024-01-30 09:28 | Outpatient (CLI) | payer OTHER, SELFPAY ==
[2024-01-30 10:37] LABS: Albumin Level 4.4 g/dl (3.5-5.0)
[2024-01-30 10:40] LABS: Alanine Aminotransferase 33 U/L (12-78); Alkaline Phosphatase 75 U/L (38-126); Aspartate Amino Transferase 32 U/L (17-59); Bilirubin,Direct 0.1 mg/dl (0.0-0.4); Bilirubin,Indirect 0.9 mg/dL (0.0-0.9); Chol/HDL Ratio 4.6 (1-3.5); Cholesterol 144 mg/dl (140-200); HDL Cholesterol 31 mg/dl (40-60); Total Protein,Serum 6.9 g/dl (6.3-8.2); Triglycerides 71 mg/dl (30-150); VLDL Cholesterol 14 mg/dL (0-40)
[2024-01-30 10:51] LABS: Direct LDL Cholesterol 88.84 mg/dL (100-129)
== END 2024-01-30 23:59 | disposition home or self-care (01) ==
LOC: LAB 09:28
PROVIDERS: PCP Family Medicine; Visit Provider Nurse Practitioner Family
DX: I10 Essential (primary) hypertension (principal); E78.49 Other hyperlipidemia; I25.10 Atherosclerotic heart disease of native coronary artery without angina pectoris; Z72.0 Tobacco use
CPT/HCPCS: 36415; 80061; 80076

== ENCOUNTER 2024-06-17 09:53 | Outpatient (CLI) | payer OTHER, SELFPAY ==
[2024-06-17 10:32] LABS: Albumin Level 4.3 g/dl (3.5-5.0)
[2024-06-17 10:35] LABS: Alanine Aminotransferase 28 U/L (12-78); Alkaline Phosphatase 78 U/L (38-126); Aspartate Amino Transferase 28 U/L (17-59); Total Protein,Serum 6.5 g/dl (6.3-8.2)
[2024-06-17 10:36] LABS: Cholesterol 115 mg/dl (140-200); HDL Cholesterol 23 mg/dl (40-60); Triglycerides 68 mg/dl (30-150); VLDL Cholesterol 14 mg/dL (0-40)
[2024-06-17 10:46] LABS: Direct LDL Cholesterol 70.78 mg/dL (100-129)
== END 2024-06-17 23:59 | disposition home or self-care (01) ==
LOC: LAB 09:54
PROVIDERS: PCP Family Medicine; Visit Provider Nurse Practitioner Family
DX: I11.9 Hypertensive heart disease without heart failure (principal); I25.10 Atherosclerotic heart disease of native coronary artery without angina pectoris; F17.200 Nicotine dependence, unspecified, uncomplicated; E78.49 Other hyperlipidemia; I45.10 Unspecified right bundle-branch block
CPT/HCPCS: 36415; 80061; 80076

== ENCOUNTER 2024-12-30 07:15 | Outpatient (CLI) | payer OTHER, SELFPAY ==
--- NOTE | 2024-12-30 07:17 | CT_ITS ---
FINAL REPORT TECHNIQUE: Thin section axial images were obtained through the lungs using a low-dose technique per lung cancer screening protocol. Reconstruction images were obtained using the axial data. Exam was performed using dose reduction technique. CLINICAL HISTORY: SCREENING current smoker 1ppd x37 years FINDINGS: CTDLvol: 2.90 DLP: 96.38 Current smoker 37 pack year history Lungs: No acute pulmonary abnormality. There is a subpleural, left upper lobe, 3 mm nodule seen on series 4, image 29 which is new from prior exam. There is evidence of prior granulomatous disease. Lungs are otherwise clear. There is emphysematous change. Lymph nodes: There are mildly prominent mediastinal lymph nodes which are unchanged. No new lymphadenopathy is seen. Mediastinum: Heart size is normal. Pleura/pericardium: No pleural or pericardial effusion. Other: Prominent coronary artery calcifications. No acute abnormality in the upper abdomen. IMPRESSION: 3 mm left upper lobe nodule, new from prior exam. Prominent coronary artery calcifications. Lung RADS: 2S Recommendation: 1 year follow-up. Reviewed, Interpreted and Dictated by Cande Moon MD Transcribed by Mary Adhikari Authenticated and . [facility]
--- OUTSIDE RECORDS SUMMARY | 2024-12-30 07:17 | XMS_ITS | Clinical Summary ---
Author Organization [facility] Address [address] [place] [address] Phone Care Team Providers Care Multifold Operator Name Role Phone Juan Capone MD Primary Care Provider + [phone] Allergies No known active allergies Medications No known medications Social History Tobacco Use Types Packs/Day Years Used Date Smoking Tobacco: Every Day Cigarettes Alcohol Use Standard Drinks/Week Comments Yes 0 (1 standard drink = 0.6 oz pur e alcohol) rarely Sex and Gender Information Value Date Recorded Sex Assigned at Not on file Legal Sex Male 5:09 AM EDT Gender Identity Not on file Sexual Orientation Not on file Obstetrics History Last Filed Vital Signs Vital Sign Reading Time Taken Comments Blood Pressure 155/88 04/01/2015 9:38 PM EST Pulse 63 04/01/2015 9:38 PM EST Temperature 36.6 C (97.8 F) 04/01/2015 8:34 PM EST Respiratory Rate 20 04/01/2015 9:38 PM EST Oxygen Saturation 97% 04/01/2015 9:38 PM EST Inhaled Oxygen Concentration - - Weight 83.9 kg (185 lb) 04/01/2015 8:34 PM EST Height 177.8 cm (5' 10 ) 04/01/2015 8:34 PM EST Body Mass Index 26.54 04/01/2015 8:34 PM EST Plan of Treatment Health Maintenance Due Date Last Done Comments Annual Wellness Exam 1969 DTaP/TDaP/Td (1 - Tdap) 1985 Hepatitis B Vaccine (1 of 3 - 19+ 3-dose series) 1985 Cologuard 2011 Colon Cancer Screening 2011 Colonoscopy 2011 FIT 2011 Sigmoidoscopy 2011 Virtual Colonography 2011 Pneumococcal Vaccine 50+ (1 of 1 - PCV) 2016 Zoster (1 of 2) 2016 COVID-19 Vaccine (1 - 2023-2 5 season) 2024 Influenza Vaccine (#1) 2025 Meningococcal B Vaccine Aged Out No l onger eligible based on patient's age to complete this topic Insurance [employer] Care Teams Multifold Operator Relationship Specialty Start Date End Date Juan Capone MD [address] [place] [address] [place] [id number] PCP - General Family Medicine 04/01/15
== END 2024-12-30 23:59 ==
PROVIDERS: PCP Family Medicine; Visit Provider Family Medicine
DX: Z12.2 Encounter for screening for malignant neoplasm of respiratory organs (principal); Z87.891 Personal history of nicotine dependence
CPT/HCPCS: 71271